=== PATIENT | female | born 2000 | race American Indian/Alaskan Native ===

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

== ENCOUNTER 2020-02-14 18:04 | Emergency (ER) | payer MEDICAID, OTHER ==
[2020-02-14 19:02] VITALS: BP 106/67
--- NOTE | 2020-02-14 23:29 | Emergency Department Report ---
Minor Respiratory - HPI Chief Complaint: Upper Respiratory Infection Stated Complaint: RIB PAIN WHEN BREATHING Time Seen by Provider: 02/14/20 22:20 Duration: 2 Days Severity: mild Minor Respiratory: Yes Able to Tolerate Fluids, Yes Chest Pain, No Rhinorrhea, No Sore Throat, No Ear Pain, No Cough, No Sick Contacts (Unsure), No Hemoptysis, No Shortness of Breath, No Fever Other History: Is a 19-year-old healthy looking female with no prior medical history who presents the ED complaining of lower rib pain with deep inspiration. Patient also states that pain is worsened with palpation of the lower ribs. Patient states for the past 2 weeks she has had some upper abdominal cramping and is unsure that is what is causing her pain. Patient states she is unsure of sick contact. Patient denies fever/chest pain or shortness of breath ED Review of Systems ROS: Stated complaint: RIB PAIN WHEN BREATHING Other details as noted in HPI Comment: All other systems reviewed and negative ED Past Medical Hx - Past Medical History Previous Medical History?: No Hx Congestive Heart Failure: No Hx Diabetes: No Hx Asthma: No Hx COPD: No - Surgical History Past Surgical History?: No - Social History Smoking Status: Never Smoker Substance Use Type: None - Medications Home Medications: Home Medications Medication Instructions Recorded Confirmed Last Taken Type Ferrous Sulfate 1 tab PO QDAY 06/06/16 06/06/16 06/05/16 History Vits96/Iron Fum/Folic 1 tab PO QDAY 06/06/16 06/06/16 06/05/16 History [ Tablet] Valacyclovir HCl [valACYclovir] 1 tab PO QDAY 06/06/16 06/06/16 06/05/16 History Naproxen [Naprosyn] 375 mg PO BID #20 tablet 02/15/20 Unknown Rx Minor Respiratory Exam - Exam General: Vital signs noted. No distress. Alert and acting appropriately. CHEST:Tenderness to palpation bilateral lower ribs. no difficulty breathing, no bruising noted HEENT: Yes Moist Mucous Membranes, No Pharyngeal Erythema, No Pharyngeal Exudates, No Rhinorrhea, No Conjuctival Injection, No Frontal Tenderness, No Maxillary Tenderness Ear: Neither TM Bulge, Neither TM Erythema, Neither EAC Pain, Neither EAC Discharge Neck: Yes Supple, No Adenopathy Lungs: Yes Good Air Exchange, No Wheezes, No Ronchi, No Stridor, No Cough, No Labored Respirations, No Retractions, No Use of Accessory Muscles, No Other Abnormal Lung Sounds Heart: Yes Regular, No Murmur Abdomen: Yes Normal Bowel Sounds, No Tenderness, No Peritoneal Signs Skin: No Rash, No Edema Neurologic: Alert and oriented, no deficits. Musculoskeletal: Unremarkable. ED Course Vital Signs 02/14/20 18:59 Temperature 98.7 F Pulse Rate 83 Respiratory 18 Rate Blood Pressure 106/67 O2 Sat by Pulse 99 Oximetry ED Medical Decision Making - Radiology Data Radiology results: report reviewed, image reviewed CHEST 2 VIEWS INDICATION / CLINICAL INFORMATION: Chest pain. COMPARISON: None available. FINDINGS: SUPPORT DEVICES: None. HEART / MEDIASTINUM: No significant abnormality. LUNGS / PLEURA: No significant pulmonary or pleural abnormality. No pneumothorax. ADDITIONAL FINDINGS: No significant additional findings. IMPRESSION: 1. No acute findings. Signer Name: Chad Self MD Signed: 02/15/2020 12:55 AM Workstation Name: [id number] Transcribed By: WILL Dictated By: Chad Self MD Electronically Authenticated By: Chad Self MD Signed Date/Time: 02/15/20 0055 - Medical Decision Making 19-year-old male presents with upper respiratory symptoms. no fever during the ED stay. Chest x-ray shows no pneumonia or any other cardiopulmonary disease Discussed with patient symptomatic relief with [id number] medications. Discussed with patient COVID-19 testing is appropriate and mandatory and should be done as soon as possible. Patient oxygen saturation stayed at 99% on room air during exertion and after exertion. Patient had no acute distress or respiratory distress the whole ED stay. She was here with her young daughter playful throughout the ED stay Discussed rest much needed. Discussed daily vitamin C for immune booster. Discussed follow-up with primary care physician in 3-5 days. Patient verbally states she understands and will comply the following instructions and follow-up Vital signs stable. Patient is in no acute distress - Differential Diagnosis Gastritis, pneumonia, COVID-19 Critical care attestation.: If time is entered above; I have spent that time in minutes in the direct care of this critically ill patient, excluding procedure time. ED Disposition Clinical Impression: Costochondral chest pain, URI (upper respiratory infection) Disposition: - TO HOME OR SELFCARE Is pt being admited?: No Does the pt Need Aspirin: No Condition: Stable Instructions: Chest Pain (ED), Costochondritis (ED) Additional Instructions: Make sure to follow up with the primary care physician as discussed. Take all your medications as you've been prescribed. If you have any worsening symptoms or develop new symptoms please return to ED immediately. Prescriptions: Naproxen [Naprosyn] 375 mg PO BID #20 tablet Referrals: PRIMARY CARE, [Primary Care Provider] - 3-5 Days [facility] [Outside] - 3-5 Days [facility] [Outside] - 3-5 Days Forms: Work/School Release Form(ED) Time of Disposition: 01:02
[2020-02-14 23:46] LABS: Bilirubin,Urine NEG (Negative); Blood,Urine NEG (Negative); Color,Urine Yellow (Yellow); Mucus,Urine 3+ /HPF
[2020-02-14 23:48] LABS: HCG Qualitative,Urine Negative (Negative)
--- NOTE | 2020-02-15 00:59 | XRay Report ---
CHEST 2 VIEWS INDICATION / CLINICAL INFORMATION: Chest pain. COMPARISON: None available. FINDINGS: SUPPORT DEVICES: None. HEART / MEDIASTINUM: No significant abnormality. LUNGS / PLEURA: No significant pulmonary or pleural abnormality. No pneumothorax. ADDITIONAL FINDINGS: No significant additional findings. IMPRESSION: 1. No acute findings. Signer Name: Chad Self MD Signed: 02/15/2020 12:55 AM Workstation Name: [id number]
== END 2020-02-15 01:10 | disposition home or self-care (01) ==
LOC: ED 18:04
DX: M94.0 Chondrocostal junction syndrome [Tietze] (principal); J06.9 Acute upper respiratory infection, unspecified; Z79.899 Other long term (current) drug therapy
CPT/HCPCS: 71046; 81001; 81025; 87086; 99283